=== PATIENT | female | born 1975 | race Caucasian/White ===

== ENCOUNTER 2016-06-12 16:26 | Emergency (ER) | payer BC ==
[2016-06-12] MEDS ORDERED: Ketorolac INJ* 30 MG/ML 1 ML VIAL IV ONE (16:41)
[2016-06-12] MEDS ORDERED: NS 0.9% 1000 ML* 1,000 ML IV ONE (16:41)
[2016-06-12] MEDS ORDERED: HYDROmorphone INJ* 1 MG/ML CARPUJECT SYRINGE IV ONE (16:41)
[2016-06-12] MEDS ORDERED: LORazepam INJ* 2 MG/ML 1 ML VIAL IV ONE (16:41)
[2016-06-12 18:34] VITALS: BP 115/66
--- NOTE | 2016-06-12 18:56 | ED ---
Johnny Livingston Michael, scribed for Lucien Martinez MD on 06/12/16 at 1719 . Back Pain - HPI Summary HPI Summary: 41 y/o female was BIBA to the ED presenting with constant back pain that started today while she was making smoothies. The pt was seen on 05/08/16 in the ED for back pain. She had an lumbar spine MRI with positive changes, and the pt was dx with a herniated lumbar disk L5. She reports that the pain has not been present since her last visit, but spontaneously today the pain reoccurred. The pt describes the pain as sharp and radiating down her bilateral LE. The pain was alleviated for 2 hours today after visiting a chiropractor, but then the pain reemerged at 1500 today. The pt finished her prescription of Oxycodone last night. Today she took Gabapentin, Excedrin, and 3 Advil. The medication did not alleviate the pain. She also c/o dysuria. - History of Current Complaint Chief Complaint: EDBackInjuryPain Stated Complaint: BACK PAIN Time Seen by Provider: 06/12/16 16:33 Hx Obtained From: Patient, Medical Records Hx Last Menstrual Period: September 2013 Onset/Duration: Sudden Onset, Lasting Hours, Still Present Onset/Duration: Started Hours Ago, Still Present Timing: Constant Back Pain Location: Is Discrete @ - lower back, Radiates To - Bilat LE Severity Initially: Moderate Severity Currently: Moderate Pain Intensity: 8 Pain Scale Used: 0-10 Numeric Character: Sharp Associated Signs And Symptoms: Positive: Other - back pain. dysuria. - Allergies/Home Medications Allergies/Adverse Reactions: Allergies Allergy/AdvReac Type Severity Reaction Status Date / Time Wheat Extract AdvReac Severe BLOATING, Verified 06/12/16 16:31 DISCOMFORT DAIRY AdvReac Severe COLD-LIKE Uncoded 06/12/16 16:31 SYMPTOMS, NAUSEA, BLOATING, DISCOMFORT PMH/Surg Hx/FS Hx/Imm Hx Endocrine/Hematology History: Reports: Hx Thyroid Disease - hypothyroid Denies: Hx Anticoagulant Therapy, Hx Blood Disorders, Hx Diabetes, Hx Unexplained Bleeding Cardiovascular History: Denies: Hx Hypercholesterolemia, Hx Hypertension, Hx Pacemaker/ICD, Hx Peripheral Vascular Disease Respiratory History: Denies: Hx Asthma, Hx Chronic Obstructive Pulmonary Disease (COPD) GI History: Reports: Hx Gastroesophageal Reflux Disease Denies: Hx Ulcer Musculoskeletal History: Reports: Hx Back Problems Denies: Hx Arthritis, Hx Osteoporosis Sensory History: Denies: Hx Cataracts, Hx Contacts or Glasses, Hx Glaucoma, Hx Hearing Aid Opthamlomology History: Denies: Hx Cataracts, Hx Contacts or Glasses, Hx Glaucoma Neurological History: Reports: Hx Headaches Denies: Hx Seizures, Hx Transient Ischemic Attacks (TIA) Psychiatric History: Denies: Hx Anxiety, Hx Depression, Hx Panic Disorder - Surgical History Surgery Procedure, Year, and Place: KNEE SURGERY, TONSILLECTOMY - Immunization History Date of Tetanus Vaccine: 2013 Date of Influenza Vaccine: not this year Infectious Disease History: No Infectious Disease History: Denies: Hx Clostridium Difficile, Hx Hepatitis, Hx Human Immunodeficiency Virus (HIV), Hx of Known/Suspected MRSA, Hx Shingles, Hx Tuberculosis, Hx Known/ Suspected VRE, Hx Known/Suspected VRSA, History Other Infectious Disease, Traveled Outside the [place] in Last 30 Days - Family History Known Family History: Positive: Cardiac Disease, Hypertension - Social History Occupation: Employed Full-time Lives: With Family Alcohol Use: Rare Hx Substance Use: No Substance Use Type: Reports: None Hx Tobacco Use: No Smoking Status (MU): Never Smoked Tobacco Review of Systems Negative: Fever Positive: dysuria Positive: Other - back pain All Other Systems Reviewed And Are Negative: Yes Physical Exam - Summary Physical Exam Summary: PE performed after administration of pain medication. Triage Information Reviewed: Yes Vital Signs On Initial Exam: Initial Vitals Temp Pulse Resp BP Pulse Ox 99.1 F 85 16 126/79 99 06/12/16 16:28 06/12/16 16:28 06/12/16 16:28 06/12/16 16:28 06/12/16 16:28 Vital Signs Reviewed: Yes Appearance: Positive: Well-Appearing, Pain Distress Skin: Positive: Warm, Skin Color Reflects Adequate Perfusion, Dry Head/Face: Positive: Normal Head/Face Inspection Eyes: Positive: Normal ENT: Positive: Normal ENT inspection Neck: Positive: Supple, Nontender Respiratory/Lung Sounds: Positive: Clear to Auscultation, Breath Sounds Present Cardiovascular: Positive: RRR Abdomen Description: Positive: Nontender, Soft Bowel Sounds: Positive: Present Musculoskeletal: Positive: Normal Neurological: Positive: Normal, Sensory/Motor Intact, Other - nml rectal tone. negative straight leg raise Psychiatric: Positive: Normal, Affect/Mood Appropriate - Holland Coma Scale Coma Scale Total: 15 Diagnostics - Vital Signs Vital Signs Temp Pulse Resp BP Pulse Ox 06/12/16 16:28 99.1 F 85 16 126/79 99 - Laboratory Lab Statement: Any lab studies that have been ordered have been reviewed, and results considered in the medical decision making process. Back Pain Course/Dx - Course Course Of Treatment: Wendy Garcia presented with an exacerbaton of her low back pain. She was diagnosed with a herniated disc in this ED about a month ago when she also had pneumonia. Dr. Victor recommended surgery after her PNA cleared up, however by that time she had seen a chiropractor and was feeling much better and chose not to have surgery. She flaired up again yesterday and saw the Chiropractor today which didn't really help. She was neurologically intact here although I could not evaluate her until she had meds on board. She is inclined to go ahead with the surgery and I am refilling her pain meds, adding ativan as a muscle relaxant and recommending that she call Dr. Victor's office tomorrow to F/U. - Diagnoses Provider Diagnoses: Herniated disc - Provider Notifications Discussed Care of Patient With: Dr. Victor Time Discussed With Above Provider: 18:30 Discharge - Discharge Plan Condition: Stable Disposition: HOME Prescriptions: LORazepam TAB(*) [Ativan TAB(*)] 1 mg PO Q6H PRN #20 tab MDD 4 PRN Reason: Pain oxyCODONE/Acetamin 10/325(NF) [Percocet 10/325 (NF)] 1 tab PO Q6HR #20 tab MDD 4 Patient Education Materials: Lumbar Disc Herniation (ED) Referrals: Librado Victor MD [Medical Doctor] - Additional Instructions: You will call Dr. Victor's office tomorrow for a follow up appointment. The documentation as recorded by the Johnny johnston Michael accurately reflects the service I personally performed and the decisions made by me, Lucien Martinez MD.
== END 2016-06-12 19:05 | disposition home or self-care (01) ==
LOC: ED 16:26
DX: M51.26 Other intervertebral disc displacement, lumbar region (principal); E03.9 Hypothyroidism, unspecified
CPT/HCPCS: 96360; 96374; 96375; 99282; J1170; J1885; J2060

== ENCOUNTER 2016-06-15 07:34 | Observation (INO) | payer BC ==
[~2016-06-15 07:34] MED LIST: Buffered Lidocaine 1% SYR 3ML* 3 ML/SYR SYRINGE INTRADERM ONE; Buffered Lidocaine 1% SYR 3ML* 3 ML/SYR SYRINGE ONE; Famotidine IV* 10 MG/ML 2 ML (20 mg) IV ONE; Famotidine IV* 10 MG/ML 2 ML (20 mg) ONE; Famotidine TAB* 20 MG PO ONE; Metoclopramide TAB* 10 MG PO ONE; Morphine INJ* 2 MG/ML 1 ML CARPUJECT IV PRN; PROCHLORPERAZINE INJ 5 MG/ML 2 ML VIAL IV PRN; Sodium Citrate/Citric Acid* 15 ML UDC PO ONE; ceFAZolin 2 GM PREMIX (*) 50 ML BAG (BBraun bag) IVPB ONE; celeCOXIB CAP* 200 MG PO ONE; fentaNYL* 50 MCG/ML 2 ML VIAL (100 MCG VIAL) IV PRN; oxyCODONE/Acetamin 5/325 MG* TAB PO PRN
[2016-06-15 08:09] LABS: Manual Entry Verification HAN0055; UR Preg Internal Control QC Line Present
[2016-06-15] MEDS ORDERED: fentaNYL* 50 MCG/ML 2 ML VIAL (100 MCG VIAL) ONE (08:22)
[2016-06-15] MEDS ORDERED: Midazolam* 1 MG/ML 5 ML VIAL (5 MG) ONE (08:23)
[2016-06-15] MEDS ORDERED: KETAMINE HCL* 50 MG/ML 10 ML VIAL ONE (08:23)
[2016-06-15] MEDS ORDERED: Bacitracin IV* 50,000 UNITS INJ ONE (09:03)
[2016-06-15] MEDS ORDERED: Lidocain 1% EPI 1:100,000 * 30 ML MDV ONE (09:03)
[2016-06-15] MEDS ORDERED: Thrombin 5,000 UNITS* 1 APPLIC KIT - topical use - TOPICAL ONE (09:03)
[2016-06-15] MEDS ORDERED: Morphine INJ* 10 MG/ML 1 ML CARPUJECT ONE (09:49)
[2016-06-15] MEDS ORDERED: Propofol* 10 MG/ML 20 ML BTL IV PUSH ONE (10:22)
[2016-06-15] MEDS ORDERED: Ondansetron INJ* 2 MG/ML VIAL ONE (10:22)
[2016-06-15] MEDS ORDERED: Neostigmine Methylsulfate* 2 MG/2 ML SYRINGE ONE (10:22)
[2016-06-15] MEDS ORDERED: Dexamethasone IV* 4 MG/ML 1 ML (4 MG) ONE (10:22)
[2016-06-15] MEDS ORDERED: Glycopyrrolate IV* 0.2 MG/ML 1 ML VIAL ONE (10:22)
[2016-06-15] MEDS ORDERED: Lidocaine 2% PF* 10 ML AMP ONE (10:44)
[2016-06-15] MEDS ORDERED: Ondansetron INJ* 2 MG/ML VIAL IV PRN (10:50)
[2016-06-15] MEDS ORDERED: Acetaminophen TAB* 325 MG PO PRN (10:50)
[2016-06-15] MEDS ORDERED: HYDROcodone/ACETAMIN 5-325 MG* 1 TAB PO PRN (10:50)
[2016-06-15] MEDS ORDERED: Magnesium Hydroxide LIQ* 30 ML UDC PO PRN (10:50)
[2016-06-15] MEDS ORDERED: PROCHLORPERAZINE INJ 5 MG/ML 2 ML VIAL ONE (11:25)
[2016-06-15] MEDS: oxyCODONE/Acetamin 5/325 MG* TAB PO PRN ×2 (18:04→22:06)
[2016-06-15] MEDS: ceFUROXime TAB(*) 250 MG PO SCH (21:23)
[2016-06-16] MEDS: oxyCODONE/Acetamin 5/325 MG* TAB PO PRN ×2 (02:53→08:05)
--- NOTE | 2016-06-16 07:56 | PN ---
Progress Note - Progress Note SOAP: Subjective: []Doing well Complains of leg numbness Pre op leg pain relieved Objective: [] Dressing dry Ambulating voiding well Assessment: []Satis post op course Plan: []D/C today D/C instructions given
[2016-06-16] MEDS: ceFUROXime TAB(*) 250 MG PO SCH (08:05)
[2016-06-16 08:28] VITALS: BP 112/66
--- NOTE | 2016-06-20 03:40 | OP ---
DATE OF OPERATION: 06/15/16 - ROOM #349 DATE OF : 77 SURGEON: Dr. Librado Victor. APPETIZER PACKER: KODAK Kathleen ANESTHESIOLOGIST: Henry Woodward MD ANESTHESIA: General. PRE-OP DIAGNOSIS: Herniated nucleus pulposus, L5-S1 on the right. POST-OP DIAGNOSIS: Herniated nucleus pulposus, L5-S1 on the right. OPERATIVE PROCEDURE: Lumbar diskectomy, L5-S1 on the right, with microdissection. DESCRIPTION OF PROCEDURE: After satisfactory general anesthesia was obtained, the patient was placed on the operating table in a prone position with the chest supported on a Allan frame and the back slightly flexed. The lumbar region was then clipped, prepped and draped in a sterile manner for lumbar laminectomy and a skin incision outlined from L5 to the sacrum. This incision was infiltrated with 1% Xylocaine with epinephrine, after which it was turned down sharply to the level of the lumbar fascia. The fascia was divided along the spinous processes of L5 and the upper sacrum and the paraspinal musculature stripped away from these posterior elements using the periosteal elevator and monopolar cautery. The L5-S1 level was identified by palpating the sacrum and moving up to the first movable interspace. A partial hemilaminectomy was then carried out at this level by removing the inferior aspect of the L5 lamina and medial aspect of the facet complex with a combination of the Midas-Deng drill and Kerrison rongeurs. This was carried superiorly until the attachment of the ligamentum flavum was taken down. Ligamentum flavum was then removed with the Kerrison as well and a generous foraminotomy carried out over the S1 nerve root. At this point of the procedure, the operating microscope was brought into the field and the remainder of the procedure done with microdissection. Utilizing microdissection, epidural venous structures were coagulated and divided. Projecting beneath the dural sac was a very large extruded disk fragment which was removed in several pieces. The interspace itself was then cleared of any loose disk material using pituitary forceps and curettes. It was felt that a satisfactory decompression had been achieved. After assuring adequate hemostasis, the wound was thoroughly irrigated, after which a piece of Gelfoam was placed over the laminectomy defect. The fascia was then reapproximated with 0 Vicryl sutures. The subcutaneous tissue was closed with 3- 0 Vicryl suture and the skin closed with skin clips. The estimated blood loss was less than 50 cc and the final sponge, padding, and needle counts were correct. The patient was taken to the recovery room extubated and in stable condition. [id number]/[facility] #: [id number] MTDD
--- NOTE | 2016-07-04 23:11 | DS ---
DISCHARGE SUMMARY: DATE OF ADMISSION: 06/15/16 DATE OF DISCHARGE: 06/16/16 DISCHARGE DIAGNOSES: 1. Herniated nucleus pulposus, L5-S1 on the right. 2. Hypothyroidism. SPECIAL PROCEDURES: Lumbar diskectomy at L5-S1 on the right. HOSPITAL COURSE: This 41-year-old female was seen in office with signs and symptoms of severe left-sided lumbar radiculopathy. She failed to improve over one month of conservative treatment and was admitted at this time for elective surgical intervention. On the date of admission, she was taken to surgery where underwent general anesthesia, a lumbar diskectomy at L5-S1 on the right operation was carried out. Postoperatively, she was doing well. Pain was well controlled with oral pain medications. She was ambulating independently. She was eating, drinking, and voiding without difficulty. On the first postoperative day, she was discharged home to the care of her family. Discharge instructions including wound care and activity level were provided and discussed with the patient. She will be seen in office in approximately 7 to 10 days with followup and staple removal. No discharge medications prescribed. KODAK NORRIS [id number]/[facility] #: [id number] ABDIAS
== END 2016-06-16 10:20 | disposition home or self-care (01) ==
LOC: OR 07:34 → SSU 12:34 → INTOOBSV 12:34
PROVIDERS: ADMIT Neurological Surgery; ATTEND Neurological Surgery
PROC: 01NB0ZZ Release Lumbar Nerve, Open Approach (ICD-10-PCS; principal; 2016-06-15 09:00)
DX: M51.17 Intervertebral disc disorders with radiculopathy, lumbosacral region (principal); M51.26 Other intervertebral disc displacement, lumbar region; Z87.891 Personal history of nicotine dependence
CPT/HCPCS: 81025; 88304; 96374; A9270-GY; G0378; J0690; J0780; J1100; J2001; J2250; J2270; J2405; J2704; J3010